=== PATIENT | female | born 1955 | race Caucasian/White ===

== ENCOUNTER 2017-07-20 14:48 | Observation (INO) | payer OTHER ==
[2017-07-20 15:56] LABS: CKMB 0.9 ng/mL (0-6.6)
[2017-07-20] MEDS ORDERED: Nitroglycerin 0.4 MG TAB (25 Tab Bottle) PO PRN (16:40)
[2017-07-20] MEDS ORDERED: Acetaminophen 650 MG Suppository PR PRN (16:40)
[2017-07-20] MEDS ORDERED: Bisacodyl 5 MG TAB PO PRN (16:40)
[2017-07-20] MEDS ORDERED: Acetaminophen 325 MG TAB PO PRN (16:40)
[2017-07-20] MEDS ORDERED: Ondansetron HCl/PF 4 MG/2 ML Vial IVP PRN (16:40)
[2017-07-20] MEDS ORDERED: Nicotine 14 MG PATCH TD PRN (16:40)
--- NOTE | 2017-07-20 17:31 | HP ---
PRIMARY CARE PHYSICIAN: Dakota Albert MD CHIEF COMPLAINT: Chest pain. HISTORY OF PRESENT ILLNESS: Ms. Jones is a pleasant 62-year-old lady who was seen at [facility] on 07/20/2017. She reports that yesterday she was sitting down when she had an episode of chest pain. This happened in the afternoon. The pain was sharp, radiating to the left arm and lasted a few seconds. She had a recurrence of the pain when she was transferring clothes from washer to long goods drier this morning around 1 0:30 a.m. She reports that it was worse, 8/10, radiating down left arm, accompanied by shortness of breath, headache, but not by diaphoresis, nausea or vomiting. She reports that it was worse with bronwyn p breathing. She went to the emergency room. She reports that after she received nitrates and morph ine the pain resolved. She denies any leg pain. She denies any calf pain. She denies any decrease in mobility. She denies any recent long distance travel. REVIEW OF SYSTEMS: The following complete review of systems was negative, unless otherwise mentioned in the HPI or below: Constitutional: Weight loss or gain, ability to conduct usual activities. Skin: Rash, itching. Eyes: Double vision, pain. ENT/Mouth: Nose bleeding, neck stiffness, pain, tenderness. Cardiovascular: Palpitations, dyspnea on exertion, orthopnea. Respiratory: Shortness of breath, wheezing, cough, hemoptysis, fever or night sweats. Gastrointestinal: Poor appetite, abdominal pain, heartburn, nausea, vomiting, constipation, or diarrhea. Genitourinary: Urgency, frequency, dysuria, nocturia. Musculoskeletal: Pain, swelling. Neurologic/Psychiatric: Anxiety, depression. Allergy/Immunologic: Skin rash, bleeding tendency. PAST MEDICAL HISTORY: Significant for hypertension, dyslipidemia, syncope. 2D echocardiogram in 2013 showing moderate aortic regurgitation, mild to moderate mitral regurgitation, mild to moderate t ricuspid regurgitation and pulmonic regurgitation. PAST SURGICAL HISTORY: Significant for hysterectomy and fundoplication surgery for hiatal hernia, co lonoscopy, and EGD. FAMILY HISTORY: Significant for COPD and atrial fibrillation in her mother and prostate cancer in he r father. SOCIAL HISTORY: She smokes half a pack of cigarettes a day. She drinks alcohol occasionally. She d oes not use any recreational drugs. ALLERGIES: PENICILLIN and SULFA. CURRENT MEDICATIONS: Aspirin 81 mg daily, sertraline 50 mg daily, levothyroxine 75 mcg daily, atorva statin 20 mg every evening. PHYSICAL EXAMINATION: GENERAL: Ms. Jones is awake and alert, not in acute distress. VITAL SIGNS: Blood pressure is 135/75, pulse is 56. She is breathing at rate of 22 and saturating 9 8% on room air. She is afebrile. EYES: No scleral icterus. No conjunctival pallor. ENT: Moist mucosal membranes. No oropharyngeal erythema or exudates. NECK: Supple, nontender, normal range of movement. Trachea is midline. RESPIRATORY: Accessory muscles of breathing are not active. Chest wall movements are symmetric bila terally. LUNGS: Clear to auscultation without wheeze, rhonchi or crepitations. CARDIOVASCULAR: S1 and S2 are heard, bradycardic and regular. LUNGS: Peripheral pulses palpable. No carotid bruit, no pericardial rub. ABDOMEN: Soft, nontender, bowel sounds heard, no hepatomegaly, no splenomegaly. NEUROLOGIC: Cranial nerves II-XII are intact. Deep tendon reflexes are 2+. SKIN: No rashes or subcutaneous nodules. LYMPHATIC: No cervical lymphadenopathy. MUSCULOSKELETAL: Power is 5/5 in all 4 extremities. PSYCHIATRIC: Normal mood, normal affect, the patient is oriented to person, place, and time. LABORATORY DATA: Ms. Jones's labs and investigations were reviewed. I reviewed her electrocardiog jermaine, which shows sinus bradycardia, no ST changes to suggest an acute coronary syndrome. I also revi ewed her chest x-ray, which does not show any pulmonary infiltrates. She also had a noncontrast CT s can of the brain, report is pending. Laboratory investigation show an unremarkable CBC, mildly eleva nancy creatinine of 1.22, last known creatinine 1.13 on 05/19/2016, normal blood urea nitrogen, normal electrolytes, normal troponin I, normal liver profile, and normal lipase. ASSESSMENT AND PLAN: Ms. Jones is a pleasant 62-year-old lady who was seen at [facility] on 07/20/2017. Her problem list includes: 1. Chest pain: The etiology is unclear. She does have risk factors for coronary artery disease. W e will admit patient to telemetry monitoring and check stress test. We will also check D-dimer to ru le out pulmonary embolism. Currently, she is chest pain free. 2. Hypertension: She is currently not on any antihypertensives. Monitor vital signs and start anti hypertensives as needed. 3. Dyslipidemia: Continue statins. 4. Hyperparathyroidism: Continue levothyroxine, check TSH. 5. Tobacco abuse: The patient has been consulted regarding tobacco cessation. At this time, she do es not want nicotine replacement therapy. We leave p.r.n. order in case she wants it later. Many thanks for allowing me to participate in your patient's care. Please feel free to contact me wi th any questions or concerns. LEVEL OF RISK: High. LEVEL OF COMPLEXITY: High.
[2017-07-20 17:45] VITALS: BMI 24.7
[2017-07-20] MEDS: Sodium Chloride 0.9% 1,000 ML IV SCH (18:11)
[2017-07-20 18:50] LABS: Troponin I Less than 0.010 ng/mL (< 0.028)
[2017-07-20 21:59] LABS: Troponin I Less than 0.010 ng/mL (< 0.028)
[2017-07-21 05:24] LABS: #Basophils 0.1 thou/uL (0.0-0.2); #Eosinphils 0.4 thou/uL (0.0-0.7); #Lymphocytes 3.2 thou/uL (1.20-3.40); #Monocytes 0.6 thou/uL (0.11-0.59); #Neutrophils 3.8 thou/uL (1.40-6.50); %Basophils 1.4 % (0.0-1.0); %Eosinophils 5.1 % (0.0-10.0); %Lymphocytes 39.9 % (21.0-51.0); %Monocytes 7.4 % (0.0-10.0); %Neutrophils 46.2 % (42.0-75.0); Hemoglobin 12.9 g/dL (12.0-16.0); Mean Corpuscular HGB CONC 32.5 g/dL (32.0-36.0); Mean Corpuscular Hemoglobin 32.8 pg (27.0-31.0); Mean Platelet Volume 9.4 fL (7.4-10.4); Platelet Count 209 thou/uL (130-400); RBC Distribution Width 11.5 % (11.5-14.5); Red Blood Cell (RBC) Count 3.92 mill/uL (4.20-5.40); White Blood Cell (WBC) Count 8.1 thou/uL (4.8-10.8)
[2017-07-21 05:56] LABS: Anion Gap 10 mmol/L (10-20); BUN (Urea Nitrogen) 19 mg/dL (9.8-20.1); Calc. Creatinine Clearance 60 mL/min (70-130); Carbon Dioxide 26 mmol/L (23-31); Chloride 107 mmol/L (98-107); Estimated GFR-MDRD 49; Glucose 93 mg/dL (80-115); Potassium 4.2 mmol/L (3.5-5.1); Sodium 139 mmol/L (136-145)
[2017-07-21] MEDS ORDERED: Sodium Chloride 0.65% Nasal 44 ML BOT EA NARE PRN (07:40)
[2017-07-21] MEDS ORDERED: Mag-Al 1200 mg/1200 mg/30 ML UDCUP PO PRN (07:40)
[2017-07-21] MEDS ORDERED: Loratadine 10 MG TAB PO PRN (07:40)
[2017-07-21] MEDS ORDERED: Chloraseptic Spray 180 ml Bottle PO PRN (07:40)
[2017-07-21] MEDS ORDERED: Milk Of Magnesia 30 ML UDCUP PO PRN (07:40)
[2017-07-21] MEDS ORDERED: Ondansetron ODT 4 MG TAB PO PRN (07:40)
[2017-07-21] MEDS ORDERED: Diabetic Tussin 200 MG/10 ML UDCUP PO PRN (07:40)
[2017-07-21] MEDS ORDERED: hydrALAZINE 20 MG/ML VIAL SLOW IVP PRN (07:40)
[2017-07-21] MEDS ORDERED: Eucerin (Mineral Oil/Petrolatum,White) 30 gm Jar TOP PRN (07:40)
[2017-07-21] MEDS ORDERED: Artificial Tears 18 DROP/0.9 ML EA EYE PRN (07:40)
[2017-07-21] MEDS ORDERED: Temazepam 15 MG CAP PO PRN (07:40)
[2017-07-21] MEDS ORDERED: VALSARTAN 20 MG PO SCH (09:00)
[2017-07-21] MEDS ORDERED: Famotidine 20 MG TAB PO SCH (09:00)
[2017-07-21] MEDS ORDERED: Enoxaparin Sodium 40 MG/0.4 ML SYRINGE SC SCH (09:00)
--- NOTE | 2017-07-21 09:49 | PDOC.PN ---
- Subjective Encounter Start Date: 07/21/17 Encounter Start Time: 11:29 -: old records requested/rev Patient seen and examined. No new complaints. No overnight events - Objective Resuscitation Status: Resuscitation Status FULL:Full Resuscitation MAR Reviewed: Yes Vital Signs & Weight: Vital Signs (12 hours) Temp Pulse Resp BP Pulse Ox 07/21/17 07:54 98.1 F 62 16 132/76 98 07/21/17 05:00 97.5 F L 60 16 113/68 94 L Weight Weight 161 lb 6.4 oz I&O: 07/20/17 07/21/17 07/22/17 06:59 06:59 06:59 Intake Total 1080 Output Total 1050 Balance 30 Result Diagrams: 07/21/17 04:20 07/21/17 04:20 Radiology Reviewed by me: Yes EKG Reviewed by me: Yes (nsr) Phys Exam - Physical Examination Constitutional: NAD HEENT: PERRLA, moist MMs, sclera anicteric Neck: no JVD, supple Respiratory: no wheezing, no rales, no rhonchi Cardiovascular: RRR, no significant murmur, no rub Gastrointestinal: soft, non-tender, no distention, positive bowel sounds Musculoskeletal: no edema, pulses present Neurological: non-focal, normal sensation, moves all 4 limbs Psychiatric: normal affect, A&O x 3 Skin: no rash, normal turgor Dx/Plan (1) Chest pain Code(s): R07.9 - CHEST PAIN, UNSPECIFIED Status: Acute (2) Hypothyroidism Code(s): E03.9 - HYPOTHYROIDISM, UNSPECIFIED Status: Acute (3) Anxiety and depression Code(s): F41.8 - OTHER SPECIFIED ANXIETY DISORDERS Status: Chronic (4) Dyslipidemia Code(s): E78.5 - HYPERLIPIDEMIA, UNSPECIFIED Status: Chronic (5) Macrocytosis Code(s): D75.89 - OTHER SPECIFIED DISEASES OF BLOOD AND BLOOD-FORMING ORGANS Status: Chronic (6) Tobacco abuse Code(s): Z72.0 - TOBACCO USE Status: Chronic - Plan cont current plan of care * smoking cessation counselling * resume home meds * today stress test * if stress test negative, will DC home later today * medication reviewed as below * symptomatic treatment. Review of Systems - Review of Systems ENT: negative: Ear Pain, Ear Discharge, Nose Pain, Nose Discharge, Nose Congestion, Mouth Pain, Mouth Swelling, Throat Pain, Throat Swelling, Other Respiratory: negative: Cough, Dry, Shortness of Breath, Hemoptysis, SOB with Excertion, Pleuritic Pain, Sputum, Wheezing Cardiovascular: negative: chest pain, palpitations, orthopnea, paroxysmal nocturnal dyspnea, edema, light headedness, other Gastrointestinal: negative: Nausea, Vomiting, Abdominal Pain, Diarrhea, Constipation, Melena, Hematochezia, Other Genitourinary: negative: Dysuria, Frequency, Incontinence, Hematuria, Retention , Other Musculoskeletal: negative: Neck Pain, Shoulder Pain, Arm Pain, Back Pain, Hand Pain, Leg Pain, Foot Pain, Other Skin: negative: Rash, Lesions, Rehan, Bruising, Other - Medications/Allergies Allergies/Adverse Reactions: Allergies Allergy/AdvReac Type Severity Reaction Status Date / Time Sulfa (Sulfonamide Allergy Severe Severe Verified 07/20/17 17:39 Antibiotics) Hives Penicillins Allergy Rash Verified 07/20/17 17:39 Medications: Current Medications Acetaminophen (Tylenol) 650 mg PO Q4H PRN PRN Reason: Headache/Fever or Pain Acetaminophen (Tylenol) 650 mg SC Q4H PRN PRN Reason: Headache/Fever or Pain Al Hydroxide/Mg Hydroxide (Maalox) 15 ml PO Q4H PRN PRN Reason: Heartburn or Indigestion Artificial Tears (Tears Naturale) 0 drop EA EYE PRN PRN PRN Reason: Dry Eyes Atorvastatin Calcium (Lipitor) 20 mg PO HS LARRY Bisacodyl (Dulcolax) 10 mg PO DAILYPRN PRN PRN Reason: Constipation Enoxaparin Sodium (Lovenox) 40 mg SC 0900 LARRY Famotidine (Pepcid) 20 mg PO BID LARRY Guaifenesin (Robitussin Sf) 200 mg PO Q4H PRN PRN Reason: Cough Hydralazine HCl (Apresoline) 10 mg SLOW IVP Q4H PRN PRN Reason: Systolic BP > 180 Sodium Chloride (Normal Saline 0.9%) 1,000 mls @ 70 mls/hr IV .[id number] [facility] Last Admin: 07/20/17 18:11 Dose: 1,000 mls Levothyroxine Sodium (Synthroid) 125 mcg PO 0600 LARRY Loratadine (Claritin) 10 mg PO DAILYPRN PRN PRN Reason: Sinus Symptoms Magnesium Hydroxide (Milk Of Magnesium) 30 ml PO DAILYPRN PRN PRN Reason: Constipation Mineral Oil/White Petrolatum (Eucerin Cream) 0 gm TOP BIDPRN PRN PRN Reason: Dry Skin Nicotine (Nicoderm Patch) 14 mg TD Q24HR PRN PRN Reason: Smoking Cessation Nitroglycerin (Nitrostat) 0.4 mg PO Q5MIN PRN PRN Reason: Chest Pain Non-Formulary Medication (Valsartan [Valsartan]) 20 mg PO DAILY LARRY Ondansetron HCl (Zofran) 4 mg IVP Q6H PRN PRN Reason: Nausea/Vomiting Ondansetron HCl (Zofran Odt) 4 mg PO Q6H PRN PRN Reason: Nausea/Vomiting Phenol (Chloraseptic [place] 180 Ml Bot) 0 ml PO PRN PRN PRN Reason: Sore Throat Sertraline HCl (Zoloft) 50 mg PO DAILY LARRY Sodium Chloride (Berks Nasal [place] 0.65%) 0 ml EA NARE QIDPRN PRN PRN Reason: Nasal Congestion Temazepam (Restoril) 15 mg PO HSPRN PRN PRN Reason: Insomnia
[2017-07-21 11:36] VITALS: BP 140/90; TEMP 97.4
[2017-07-21] MEDS: Sodium Chloride 0.9% 1,000 ML IV SCH (11:46)
--- NOTE | 2017-07-21 11:47 | DIS ---
PRIMARY CARE PHYSICIAN: [facility] Call Admission. DATE OF ADMISSION: 07/20/2017 DATE OF DISCHARGE: 07/21/2017 DISCHARGE DISPOSITION: Home. PRIMARY DISCHARGE DIAGNOSES: 1. Chest pain, ruled out acute coronary syndrome. 2. Hypothyroidism, not controlled. SECONDARY DISCHARGE DIAGNOSES: Dyslipidemia, anxiety and depression, macrocytosis, tobacco abuse disorder, and hypertension. PRIMARY PROCEDURE/OPERATION: None. RADIOLOGICAL INVESTIGATION: Chest x-ray was normal. CT brain normal. Stress test negative for any ischemia. SIGNIFICANT LABORATORY DATA: WBC 8.1, hemoglobin 12.9, MCV 101, platelets 209, D-dimer less than 0.27. Sodium 139, potassium 4.2, BUN 19, creatinine 1.13, calcium 9.0. Cardiac enzymes negative x3. TSH 45. DISCHARGE MEDICATIONS: Synthroid dose increased to 150 mcg p.o. daily. Continue following medication: Aspirin 81 mg p.o. daily, Lipitor 20 mg p.o. daily, Zoloft 50 mg p.o. daily, losartan with hydrochlorothiazide one tablet p.o. daily. CONTRAINDICATIONS: None. CODE STATUS: FULL CODE. INPATIENT CONSULTANTS: None. ALLERGIES: SULFA DRUGS, PENICILLIN. DISCHARGE PLAN: Post hospital, the patient will follow up with primary care physician in 1 week. HOSPITAL COURSE: The patient is a 62-year-old female with above mentioned medical problem, who was admitted by Dr. Gonzales. Please see his H&P for further details. The patient was admitted to the hospital for chest pain. Her chest pain description was atypical. Patient's initial EKG was unremarkable. She had negative cardiac enzymes x3. She had negative D-dimer. This patient underwent a nuclear medicine stress test and that came back normal as well. Her telemetry remained unremarkable. During this admission, her TSH was very high and that is why we increased her dose of Synthroid from 75- to 150 mcg p.o. daily, and she will follow with primary care physician for further TSH testing. We provided smoking cessation counseling. Healthy lifestyle measures discussed with the patient. At this point, we have ruled out completely cardiac etiology and patient will follow up with primary care physician. Plan of care discussed with the patient. The patient is seen and examined at bedside today. Please see my progress from today for further detail. FELICIANO
--- NOTE | 2017-07-21 12:11 | NM ---
NUCLEAR MEDICINE CARDIAC PERFUSION EXAMINATION: COMPARISON: 01/27/11. HISTORY: A 62-year-old female with chest pain. History of cardiac catheterization and history of chest pain. Dyslipidemia and hypertension. TECHNIQUE: A single-day nuclear medicine cardiac perfusion examination was performed. Rest images were obtained using 9 mCi of Technetium 99m sestamibi. Stress images were obtained using 30.2 mCi of Technetium 9 9m sestamibi and adenosine. FINDINGS: Tomographic images showed no fixed or reversible perfusion defects. Gated images show normal wall mo tion with an ejection fraction of greater than 70%. EDV is 79 mL. LHR is 0.4. TID is 0.9. IMPRESSION: No evidence of ischemia. POS: SANDRA
[2017-07-21] MEDS ORDERED: Atorvastatin Calcium 10 MG TAB PO SCH (21:00)
[2017-07-22] MEDS ORDERED: Levothyroxine Sodium 125 MCG TAB PO SCH (06:00)
== END 2017-07-21 12:55 | disposition home or self-care (01) ==
LOC: ERS 14:48 → 2SW 16:28
PROVIDERS: ADMIT Internal Medicine; ATTEND Internal Medicine
DX: R07.89 Other chest pain (principal); E03.9 Hypothyroidism, unspecified; E78.5 Hyperlipidemia, unspecified; D75.89 Other specified diseases of blood and blood-forming organs; I10 Essential (primary) hypertension; F41.9 Anxiety disorder, unspecified; F32.9 Major depressive disorder, single episode, unspecified; F17.210 Nicotine dependence, cigarettes, uncomplicated; Z79.82 Long term (current) use of aspirin; Z79.899 Other long term (current) drug therapy; Z88.2 Allergy status to sulfonamides; Z88.0 Allergy status to penicillin; Z90.710 Acquired absence of both cervix and uterus; Z98.890 Other specified postprocedural states; Z82.49 Family history of ischemic heart disease and other diseases of the circulatory system
CPT/HCPCS: 36415; 78452; 80048; 84443; 85025; 85379; 93005; 93017; 94760; 96361; 96365; 96372; A9500; G0378; J1650

== ENCOUNTER 2019-03-24 09:51 | Outpatient (CLI) | payer MEDICARE ==
--- NOTE | 2019-03-24 10:59 | MMO ---
Bilateral MAMMO Bilat Diag DDI+KASHIF. CLINICAL HISTORY: Patient is 64 years old and is seen for diagnostic exam and palpable abnormality in the left breast. The patient has the following family history of breast cancer: mother, malignant (generic). The patient has no personal history of cancer. VIEWS: The views performed were: bilateral craniocaudal with tomosynthesis; bilateral mediolateral oblique with tomosynthesis; and bilateral mediolateral with tomosynthesis. FILMS COMPARED: The present examination has been compared to prior imaging studies performed at [facility] on 02/24/2011, 06/16/2014, 06/22/2014 and 03/24/2019. This study has been interpreted with the assistance of computer-aided detection. MAMMOGRAM FINDINGS: The breasts are heterogeneously dense, which could obscure a lesion on mammography. There is an oval mass measuring 6 x 11 x 11 mm with obscured margins seen in the anterior sub-areolar region of the left breast. In the right breast, there are no suspicious masses, calcifications or areas of architectural distortion. IMPRESSION: MASS IN THE LEFT BREAST IS SUSPICIOUS. BIOPSY IS RECOMMENDED. SOLID ON ULTRASOUND. THE RESULTS OF THIS EXAM WERE SENT TO THE PATIENT. ACR BI-RADS Category 4 - Suspicious abnormality - biopsy should be considered MAMMOGRAPHY NOTE: 1. A negative mammogram report should not delay a biopsy if a dominant of clinically suspicious mass is present. 2. Approximately 10% to 15% of breast cancers are not detected by mammography. 3. Adenosis and dense breasts may obscure an underlying neoplasm. Reported by: GRACIA GLASS MD Electonically Signed: [id number]
--- NOTE | 2019-03-24 11:11 | ULT ---
LEFT BREAST ULTRASOUND LIMITED: HISTORY: The patient presents with a palpable findings in the retroareolar region of the left breast. FINDINGS: There is a circumscribed solid mass in the retroareolar region of the left breast, accounting for the palpable finding. This mass measures approximately 0.7 x 1.2 x 1.2 cm in size. Since this is a new palpable finding, biopsy is recommended. IMPRESSION: BI-RADS category 4-Suspicious finding. Ultrasound guided biopsy is recommended. Findings were discussed with the patient. The patient is being scheduled for ultrasound guided breast biopsy, which will need to be delayed bec ause the patient is on aspirin. Findings were discussed with the patient who is in agreement with proceeding to biopsy. POS: OFF
== END 2019-03-24 09:52 | disposition home or self-care (01) ==
LOC: BICMAMMO 09:51
PROVIDERS: ATTEND Family Medicine
DX: N63.20 Unspecified lump in the left breast, unspecified quadrant (principal)
CPT/HCPCS: 76642; 77066; G0279

== ENCOUNTER → 2019-04-07 | Day surgery (SDC) | payer MEDICARE ==
--- NOTE | 2019-04-07 13:36 | MMO ---
Left Breast MAMMO Unilat Diag DDI LT. CLINICAL HISTORY: Patient is 64 years old and is seen for diagnostic exam. VIEWS: The views performed were: . FILMS COMPARED: The present examination has been compared to prior imaging studies performed at [facility] on 06/16/2014, 06/22/2014 and 03/24/2019. This study has been interpreted with the assistance of computer-aided detection. MAMMOGRAM FINDINGS: The breast is heterogeneously dense, which could obscure a lesion on mammography. Left biopsy clip. IMPRESSION: FINDING IN THE LEFT BREAST IS CONFIRMED UTILIZING POST PROCEDURE MAMMOGRAM. THE RESULTS OF THIS EXAM WERE SENT TO THE PATIENT. MAMMOGRAPHY NOTE: 1. A negative mammogram report should not delay a biopsy if a dominant of clinically suspicious mass is present. 2. Approximately 10% to 15% of breast cancers are not detected by mammography. 3. Adenosis and dense breasts may obscure an underlying neoplasm. Reported by: SONG MCKINLEY MD Electonically Signed: [id number]
--- NOTE | 2019-04-07 13:43 | ULT ---
Ultrasound-guided biopsy of periareolar left breast mass. HISTORY: Palpable abnormality within the left breast subsequently demonstrated is a solid lesion. Bio psy was recommended. COMPARISON: Ultrasound examination of 03/24/2019. FINDINGS: An approximately 11 mm periareolar left breast mass is noted. It is solid. After informed c onsent was obtained the patient was prepped and draped in normal sterile fashion. Local anesthesia obtained 1% lidocaine mixed with sodium bicarbonate. A small skin skin incision was made with a #11 s calpel blade. Subsequently a total of 3 core biopsies using a 14-gauge biopsy gun were performed. Patient tolerated the procedure well. Hemostasis was obtained without difficulty. A biopsy clip was s ubsequently deployed with good position of the clip within the lesion. There were no immediate complications of the procedure. IMPRESSION: Ultrasound directed biopsy of left breast mass. No immediate complications of the procedu re.
== END ==
LOC: BICULT 12:44
PROVIDERS: ATTEND Family Medicine
PROC: 0H9U3ZX Drainage of Left Breast, Percutaneous Approach, Diagnostic (ICD-10-PCS; principal; 2019-04-07)
DX: D24.2 Benign neoplasm of left breast (principal); Z88.0 Allergy status to penicillin; Z88.2 Allergy status to sulfonamides
CPT/HCPCS: 19083; 88305; 88342

== ENCOUNTER 2020-02-02 10:46 | Outpatient (CLI) | payer MEDICARE ==
--- NOTE | 2020-02-02 12:16 | ULT ---
ULTRASOUND ABDOMEN LIMITED: (RIGHT UPPER QUADRANT) DATE: 02/02/2020 HISTORY: 65-year-old female with right upper quadrant abdominal pain FINDINGS: Gallbladder: Normal wall thickness. No gallstones or sludge identified. No pericholecystic fluid. The re is a tiny 0.3 cm nonshadowing intermediate echogenicity focus in the lumen of the gallbladder body/fundus. Liver: Normal parenchymal echogenicity. No hepatomegaly. There is a focal round 1 x 1 x 1.3 cm nonsha dowing hyperechoic lesion in the left lobe. Right kidney: No hydronephrosis. Pancreas: Visualized, with no gross sonographic abnormality identified (although ultrasound is relati vely insensitive for the detection of pancreatic pathology compared to CT and MRI.). Common duct caliber: 4 mm. IMPRESSION: 1) no sonographic evidence of cholelithiasis cholecystitis, or biliary obstruction. 2) tiny 3 mm gallbladder polyp. 3) 1.3 cm hyperechoic solid lesion in the left lobe of liver, probably a hemangioma. However, given p atient's age, serial follow-up ultrasounds are recommended, beginning in 3 months. This may or may not be too small to characterize by CT and MRI.
== END 2020-02-02 10:47 | disposition home or self-care (01) ==
LOC: SCSULT 10:46
PROVIDERS: ATTEND Family Medicine
DX: R10.11 Right upper quadrant pain (principal); K82.4 Cholesterolosis of gallbladder; K76.9 Liver disease, unspecified
CPT/HCPCS: 76705

== ENCOUNTER 2021-02-06 13:40 | Observation (INO) | payer MEDICARE ==
[2021-02-06 14:18] LABS: #Basophils 0.1 thou/uL (0.0-0.2); #Eosinphils 0.3 thou/uL (0.0-0.7); #Lymphocytes 2.3 thou/uL (1.20-3.40); #Monocytes 0.6 thou/uL (0.11-0.59); #Neutrophils 5.6 thou/uL (1.40-6.50); %Basophils 0.9 % (0.0-1.0); %Eosinophils 3.2 % (0.0-10.0); %Lymphocytes 26.5 % (21.0-51.0); %Monocytes 6.4 % (0.0-10.0); %Neutrophils 63.1 % (42.0-75.0); Hemoglobin 13.7 g/dL (12.0-16.0); Mean Corpuscular HGB CONC 34.8 g/dL (32.0-36.0); Mean Corpuscular Hemoglobin 34.4 pg (27.0-31.0); Mean Corpuscular Volume 98.8 fL (78.0-98.0); Mean Platelet Volume 9.4 fL (7.4-10.4); Platelet Count 209 thou/uL (130-400); RBC Distribution Width 12.8 % (11.5-14.5); Red Blood Cell (RBC) Count 3.99 mill/uL (4.20-5.40); White Blood Cell (WBC) Count 8.8 thou/uL (4.8-10.8)
[2021-02-06 14:37] LABS: ALT (SGPT) 8 U/L (8-55); AST (SGOT) 14 U/L (5-34); Albumin 3.9 g/dL (3.4-4.8); Alkaline Phosphatase 63 U/L (40-110); Anion Gap 10 mmol/L (10-20); BUN (Urea Nitrogen) 18 mg/dL (9.8-20.1); Bilirubin, Total 0.6 mg/dL (0.2-1.2); Calc. Creatinine Clearance 0 mL/min (70-130); Carbon Dioxide 27 mmol/L (23-31); Chloride 103 mmol/L (98-107); Globulin 2.7 g/dL (2.4-3.5); Glucose 108 mg/dL (80-115); Potassium 4.3 mmol/L (3.5-5.1); Protein, Total 6.6 g/dL (5.8-8.1); Sodium 136 mmol/L (136-145)
[2021-02-06 14:59] LABS: CKMB 1.3 ng/mL (0-6.6)
[2021-02-06] MEDS ORDERED: Acetaminophen 325 MG TAB PO PRN (16:59)
[2021-02-06] MEDS ORDERED: Nitroglycerin 0.4 MG TAB (25 Tab Bottle) SL PRN (16:59)
[2021-02-06] MEDS ORDERED: Ondansetron PF 4 MG/2 ML Vial IVP PRN (16:59)
[2021-02-06] MEDS ORDERED: Ondansetron ODT 4 MG TAB PO PRN (16:59)
[2021-02-06] MEDS ORDERED: Calcium Carbonate 500 MG ChewTAB PO PRN (16:59)
[2021-02-06] MEDS ORDERED: Acetaminophen 650 MG Suppository PR PRN (16:59)
[2021-02-06 17:37] LABS: Troponin I 0.025 ng/mL (< 0.028)
[2021-02-06 18:15] LABS: SARS-CoV-2 NAA Rapid Test Not Detected (NotDetected)
[2021-02-06] MEDS: Sodium Chloride 0.9% 1,000 ML IV SCH (19:00)
[2021-02-06] MEDS ORDERED: Aspirin 325 MG TAB PO SCH (19:15)
[2021-02-06 21:00] LABS: Troponin I 0.024 ng/mL (< 0.028)
[2021-02-06] MEDS ORDERED: Nitroglycerin 2% Ointment 1 INCH/1 GM Packet ONE (22:20)
[2021-02-07] MEDS ORDERED: Ondansetron PF 4 MG/2 ML Vial ONE (04:34)
[2021-02-07] MEDS ORDERED: Acetaminophen 325 MG TAB ONE (04:55)
[2021-02-07 05:00] LABS: #Basophils 0.1 thou/uL (0.0-0.2); #Eosinphils 0.4 thou/uL (0.0-0.7); #Lymphocytes 4.4 thou/uL (1.20-3.40); #Monocytes 0.8 thou/uL (0.11-0.59); #Neutrophils 5.5 thou/uL (1.40-6.50); %Basophils 1.1 % (0.0-1.0); %Eosinophils 3.5 % (0.0-10.0); %Lymphocytes 39.2 % (21.0-51.0); %Neutrophils 49.1 % (42.0-75.0); Hemoglobin 13.7 g/dL (12.0-16.0); Mean Corpuscular HGB CONC 32.7 g/dL (32.0-36.0); Mean Corpuscular Hemoglobin 32.7 pg (27.0-31.0); Mean Platelet Volume 9.6 fL (7.4-10.4); Platelet Count 226 thou/uL (130-400); RBC Distribution Width 12.9 % (11.5-14.5); Red Blood Cell (RBC) Count 4.19 mill/uL (4.20-5.40); White Blood Cell (WBC) Count 11.2 thou/uL (4.8-10.8)
[2021-02-07 05:24] LABS: Anion Gap 9 mmol/L (10-20); BUN (Urea Nitrogen) 16 mg/dL (9.8-20.1); Calc. Creatinine Clearance 0 mL/min (70-130); Calcium 9.1 mg/dL (7.8-10.44); Carbon Dioxide 29 mmol/L (23-31); Cardiac Risk 4.1 (Less than 4.5); Chloride 102 mmol/L (98-107); Cholesterol 275 mg/dl (< 200 Desired); Glucose 105 mg/dL (80-115); HDL Cholesterol 67 mg/dL (>60 Neg Risk); LDL Cholesterol, Calculated 183 mg/dL; Magnesium 2.2 mg/dL (1.6-2.6); Potassium 4.1 mmol/L (3.5-5.1); Sodium 136 mmol/L (136-145); Triglycerides 126 mg/dL (Less than 150)
[2021-02-07] MEDS ORDERED: Nitroglycerin 2% Ointment 1 INCH/1 GM Packet TOP SCH (09:00)
[2021-02-07] MEDS ORDERED: Aspirin Chewable 81 MG TAB PO SCH (09:00)
[2021-02-07] MEDS ORDERED: ADENOSINE 60 MG/20 ML VIAL ONE (09:02)
[2021-02-07] MEDS: Sodium Chloride 0.9% 1,000 ML IV SCH (09:11)
[2021-02-07] MEDS ORDERED: Levothyroxine Sodium 25 MCG TAB PO SCH (13:45)
[2021-02-07 14:08] VITALS: BMI 28.5
[2021-02-07 14:09] VITALS: TEMP 98.4
[2021-02-07 18:25] VITALS: BP 155/85
[2021-02-08] MEDS ORDERED: Levothyroxine Sodium 25 MCG TAB PO SCH (06:00)
== END 2021-02-07 18:15 | disposition home or self-care (01) ==
LOC: ERS 13:40 → ERHOLD 16:04 → 2SW 02-07 13:57
PROVIDERS: ADMIT Internal Medicine; ATTEND Internal Medicine
DX: R07.89 Other chest pain (principal); I12.9 Hypertensive chronic kidney disease with stage 1 through stage 4 chronic kidney disease, or unspecified chronic kidney disease; N18.30 Chronic kidney disease, stage 3 unspecified; N17.9 Acute kidney failure, unspecified; E78.5 Hyperlipidemia, unspecified; F17.210 Nicotine dependence, cigarettes, uncomplicated; E89.0 Postprocedural hypothyroidism; E78.00 Pure hypercholesterolemia, unspecified; I08.0 Rheumatic disorders of both mitral and aortic valves; Z79.82 Long term (current) use of aspirin; Z79.899 Other long term (current) drug therapy; Z88.0 Allergy status to penicillin; Z88.2 Allergy status to sulfonamides; Z20.822 Contact with and (suspected) exposure to COVID-19
CPT/HCPCS: 0240U; 71045; 78452; 80048; 80053; 80061; 82553; 83735; 84439; 84443; 84484 ×2; 85025 ×2; 93005; 93017; 93306; 96374; 99285; A9500; G0378 ×3; 36415; J2405

== ENCOUNTER 2021-03-10 08:16 | Outpatient (CLI) | payer MEDICARE | END 2021-03-10 08:17 | disposition home or self-care (01) | LOC: NM 08:16 | PROVIDERS: ATTEND Family Medicine | DX: R10.11 Right upper quadrant pain (principal) | CPT/HCPCS: 78227; A9537 ==

== ENCOUNTER 2021-06-09 14:16 | Outpatient (CLI) | payer MEDICARE | END 2021-06-09 14:17 | disposition home or self-care (01) | LOC: BICMAMMO 14:16 | PROVIDERS: ATTEND Physician Assistant | DX: N63.21 Unspecified lump in the left breast, upper outer quadrant (principal) | CPT/HCPCS: 76642; 77066; G0279 ==

== ENCOUNTER 2021-06-27 08:14 | Outpatient (CLI) | payer MEDICARE ==
[2021-06-27 10:19] LABS: #Basophils 0.1 10x3/uL (0.0-0.2); #Eosinphils 0.4 10x3/uL (0.0-0.5); #Monocytes 0.6 10x3/uL (0.0-1.1); #Neutrophils 3.8 10x3/uL (1.5-8.4); %Basophils 0.9 % (0.0-2.0); %Eosinophils 5.4 % (0.0-6.0); %Lymphocytes 35.8 % (18.0-47.0); %Monocytes 7.8 % (0.0-10.0); %Neutrophils 49.8 % (40.0-75.0); Hemoglobin 14.7 g/dL (12.0-15.5); Mean Corpuscular HGB CONC 34.3 g/dL (32.0-36.0); Mean Corpuscular Hemoglobin 32.5 pg (27.0-33.0); Mean Corpuscular Volume 94.9 fl (81.6-98.3); Mean Platelet Volume 11.9 fl (7.4-10.4); Platelet Count 244 10x3/uL (150-450); RBC Distribution Width 12.5 % (11.5-14.5); Red Blood Cell (RBC) Count 4.52 10x6/uL (3.90-5.03); White Blood Cell (WBC) Count 7.6 10x3/uL (3.5-10.5)
[2021-06-27 10:37] LABS: Anion Gap 13 mmol/L (10-20); BUN (Urea Nitrogen) 13 mg/dL (9.8-20.1); Calc. Creatinine Clearance 0 mL/min (70-130); Calcium 9.5 mg/dL (7.8-10.44); Carbon Dioxide 28 mmol/L (23-31); Chloride 100 mmol/L (98-107); Glucose 75 mg/dL (80-115); Potassium 4.3 mmol/L (3.5-5.1); Sodium 137 mmol/L (136-145)
[2021-06-27 22:23] LABS: SARS-CoV-2 PCR by NAA Not Detected (NotDetected)
== END 2021-06-27 08:15 | disposition home or self-care (01) ==
LOC: LABBT 08:14
PROVIDERS: ATTEND Surgery
DX: Z01.818 Encounter for other preprocedural examination (principal); Z20.822 Contact with and (suspected) exposure to COVID-19
CPT/HCPCS: 71046; 80048; 85025; 93005; U0003; U0005; 93010

== ENCOUNTER 2021-06-30 05:49 | Day surgery (SDC) | payer MEDICARE ==
[2021-06-28 11:11] VITALS: BMI 25.3
[2021-06-30] MEDS ORDERED: Acetaminophen 500 MG TAB ONE (06:10)
[2021-06-30] MEDS ORDERED: Ketorolac Tromethamine 30 MG/ML VIAL ONE ×2 (06:10→07:41)
[2021-06-30] MEDS ORDERED: Lidocaine 1% (PF) 30 ML VIAL ONE (06:43)
[2021-06-30] MEDS ORDERED: Bupivacaine PF 0.5% 30 ML VIAL ONE (06:43)
[2021-06-30] MEDS ORDERED: EPINEPHrine 1 MG/ML AMP ONE (06:43)
[2021-06-30] MEDS ORDERED: Fentanyl 100 MCG/2 ML VIAL ONE ×2 (06:44→06:45)
[2021-06-30] MEDS ORDERED: Lidocaine 2% Jelly 5 ML TUBE ONE (07:35)
[2021-06-30] MEDS ORDERED: Dexamethasone 20 MG/5 ML VIAL ONE (07:41)
[2021-06-30] MEDS ORDERED: PROPOFOL 200 MG/20 ML VIAL ONE (07:41)
[2021-06-30] MEDS ORDERED: Ondansetron PF 4 MG/2 ML Vial ONE (07:41)
[2021-06-30] MEDS ORDERED: Lidocaine 1% PF 5 ML VIAL ONE (07:41)
[2021-06-30] MEDS ORDERED: Levofloxacin 500 mg/D5W 100 ml Premix Bag ONE (08:08)
== END 2021-06-30 10:17 | disposition home or self-care (01) ==
LOC: SDC 05:49
PROVIDERS: ATTEND Surgery
PROC: 0HBU0ZZ Excision of Left Breast, Open Approach (ICD-10-PCS; principal; 2021-06-30)
DX: N60.02 Solitary cyst of left breast (principal); N61.1 Abscess of the breast and nipple; N62 Hypertrophy of breast; N60.12 Diffuse cystic mastopathy of left breast; I10 Essential (primary) hypertension; Z79.82 Long term (current) use of aspirin; Z79.899 Other long term (current) drug therapy; Z88.0 Allergy status to penicillin; Z88.2 Allergy status to sulfonamides
CPT/HCPCS: 87070; 87077; 87186; 87205; 88304; J0171; J1100; J1885; J1956; J2001; J2405; J2704; J3010; S0020

== ENCOUNTER 2024-04-30 10:41 | Outpatient (CLI) | payer MEDICARE | END 2024-04-30 10:42 | disposition home or self-care (01) | LOC: BICMAMMO 10:41 | PROVIDERS: ATTEND Physician Assistant | DX: Z12.31 Encounter for screening mammogram for malignant neoplasm of breast (principal); N64.89 Other specified disorders of breast; Z80.3 Family history of malignant neoplasm of breast; Z91.89 Other specified personal risk factors, not elsewhere classified | CPT/HCPCS: 77063; 77067 ==

== ENCOUNTER 2024-05-07 08:12 | Outpatient (CLI) | payer MEDICARE | END 2024-05-07 08:13 | disposition home or self-care (01) | LOC: BICMAMMO 08:12 | PROVIDERS: ATTEND Physician Assistant | DX: N64.89 Other specified disorders of breast (principal) | CPT/HCPCS: 76642; 77065; G0279 ==